=== PATIENT | female | born 1940 | race Caucasian/White ===

== ENCOUNTER 2019-02-21 06:40 | Day surgery (SDC) | payer MEDICARE, BC ==
[2019-02-21] MEDS ORDERED: fentaNYL 100 MCG/2 ML SDV IV ONE (06:41)
[2019-02-21] MEDS ORDERED: Midazolam 1 MG/ML 2 ML SDV IV ONE (06:41)
[2019-02-21] MEDS ORDERED: Sodium Chloride 0.9% 10 ML Syringe FLUSH PRN (06:45)
[2019-02-21] MEDS ORDERED: Lactated Ringers 1,000 ML IV SCH (06:45)
[2019-02-21 09:24] VITALS: BP 135/74; PULSE 93
--- NOTE | 2019-02-21 11:04 | OR ---
DATE OF OPERATION: 02/21/2019 SURGEON: Kayleen Paulino MD PREOPERATIVE DIAGNOSIS: Visually significant cataract, right eye. POSTOPERATIVE DIAGNOSIS: Visually significant cataract, right eye. PROCEDURES PERFORMED: Phacoemulsification with intraocular lens placement, right eye. ASSISTANTS: None. ANESTHESIA: Local with sedation. COMPLICATIONS: None. BLOOD LOSS: None. IMPLANTS: Kiko AU00T0, 21.5 Diopter lens implanted. CDE: 10.37. DESCRIPTION OF PROCEDURE: After risks and benefits were reviewed with the patient, consent was obtained in the preoperative area, and the operative eye was marked with a surgical pen. In the preoperative area, a pledget was used to dilate the pupil consisting of a mixture of phenylephrine 10%, cyclopentolate 2%, moxifloxacin 0.5%, and bupivacaine 0.75%. The patient was taken to the operating room, where a time-out was performed, and the patient was placed under monitored anesthesia care. Topical tetracaine was used for anesthesia. The operative eye was prepped and draped for ophthalmic surgery, and the microscope was brought into position and focussed. A paracentesis incision was made, followed by injection of preservative-free 1% lidocaine into the anterior chamber, followed by injection of Viscoat into the anterior chamber. A microkeratome blade was used to make a corneal limbal incision temporarily. A cystotome was used to make the beginning of the capsulorrhexis, which was carried around 360 degrees in a curvilinear fashion using Utrata forceps. A Weldon cannula with BSS was used to hydrodissect and hydrodelineate the nucleus. The nucleus was removed in a divide and conquer manner using phacoemulsification. Irrigation and aspiration were used to remove the remaining cortical material. Provisc was used to inflate the capsular bag, and a pre-loaded Kiko AU00T0, 21.5 diopter lens, serial number [id number] was injected into the capsular bag. A Sinskey hook was used to position and center the lens. Next, irrigation and aspiration was used to remove any remaining viscoelastic and cortical material from the anterior chamber. BSS on a cannula was used to inflate the anterior chamber and hydrate the wound. The wound was checked and found to be watertight. 1 mg of Moxifloxacin was injected into the anterior chamber. Drapes were removed and the eye was cleaned. A drop of brimonidine 0.15% and a drop of TobraDex was placed. The eye was shielded, and the patient was taken to the recovery room in stable condition. /[id number] AMITA/CORDELL CC: RANJIT HINDS PA-C MTDD
== END 2019-02-21 09:30 | disposition home or self-care (01) ==
LOC: FB.SDS 06:40
PROVIDERS: ATTEND Ophthalmology
DX: E11.36 Type 2 diabetes mellitus with diabetic cataract (principal); E11.3293 Type 2 diabetes mellitus with mild nonproliferative diabetic retinopathy without macular edema, bilateral; E11.22 Type 2 diabetes mellitus with diabetic chronic kidney disease; I12.9 Hypertensive chronic kidney disease with stage 1 through stage 4 chronic kidney disease, or unspecified chronic kidney disease; N18.3 Chronic kidney disease, stage 3 (moderate); M19.90 Unspecified osteoarthritis, unspecified site; M10.9 Gout, unspecified; E78.2 Mixed hyperlipidemia; Z79.899 Other long term (current) drug therapy; Z79.84 Long term (current) use of oral hypoglycemic drugs; Z79.82 Long term (current) use of aspirin; Z88.8 Allergy status to other drugs, medicaments and biological substances
CPT/HCPCS: 82962; J2250; J3010; J7120; V2632

== ENCOUNTER 2019-03-01 06:35 | Day surgery (SDC) | payer MEDICARE, BC ==
[2019-03-01] MEDS ORDERED: fentaNYL 100 MCG/2 ML SDV IV ONE (06:36)
[2019-03-01] MEDS ORDERED: Ondansetron 4 MG/2 ML SDV IVPUSH ONE (06:36)
[2019-03-01] MEDS ORDERED: Midazolam 1 MG/ML 2 ML SDV IV ONE (06:36)
[2019-03-01] MEDS ORDERED: Sodium Chloride 0.9% 10 ML Syringe FLUSH PRN (06:45)
[2019-03-01] MEDS: Lactated Ringers 1,000 ML IV SCH (07:40)
--- NOTE | 2019-03-01 11:18 | OR ---
DATE OF OPERATION: 03/01/2019 SURGEON: Kayleen Paulino MD PREOPERATIVE DIAGNOSIS: Visually significant cataract, left eye. POSTOPERATIVE DIAGNOSIS: Visually significant cataract, left eye. PROCEDURES PERFORMED: Phacoemulsification with intraocular lens placement, left eye. ASSISTANTS: None. ANESTHESIA: Local with sedation. COMPLICATIONS: None. BLOOD LOSS: None. IMPLANTS: Kiko AU00T0, 22.5 diopter lens implanted. CDE: 8.93. DESCRIPTION OF PROCEDURE: After risks and benefits were reviewed with the patient, consent was obtained in the preoperative area, and the operative eye was marked with a surgical pen. In the preoperative area, a pledget was used to dilate the pupil consisting of a mixture of phenylephrine 10%, cyclopentolate 2%, moxifloxacin 0.5%, and bupivacaine 0.75%. The patient was taken to the operating room, where a time-out was performed, and the patient was placed under monitored anesthesia care. Topical tetracaine was used for anesthesia. The operative eye was prepped and draped for ophthalmic surgery, and the microscope was brought into position and focussed. A paracentesis incision was made, followed by injection of preservative-free 1% lidocaine into the anterior chamber, followed by injection of Viscoat into the anterior chamber. A microkeratome blade was used to make a corneal limbal incision temporarily. A cystotome was used to make the beginning of the capsulorrhexis, which was carried around 360 degrees in a curvilinear fashion using Utrata forceps. A Weldon cannula with BSS was used to hydrodissect and hydrodelineate the nucleus. The nucleus was removed in a divide and conquer manner using phacoemulsification. Irrigation and aspiration were used to remove the remaining cortical material. Provisc was used to inflate the capsular bag, and a pre-loaded Kiko AU00T0, 22.5 diopter lens, serial number [id number] was injected into the capsular bag. A Sinskey hook was used to position and center the lens. Next, irrigation and aspiration was used to remove any remaining viscoelastic and cortical material from the anterior chamber. BSS on a cannula was used to inflate the anterior chamber and hydrate the wound. The wound was checked and found to be watertight. 1 mg of Moxifloxacin was injected into the anterior chamber. Drapes were removed and the eye was cleaned. A drop of brimonidine 0.15% and a drop of TobraDex was placed. The eye was shielded, and the patient was taken to the recovery room in stable condition. /[id number] AMITA/CORDELL CC: RANJIT HINDS PA-C MTDD
[2019-03-01 15:09] VITALS: BP 125/73; PULSE 88
== END 2019-03-01 09:05 | disposition home or self-care (01) ==
LOC: FB.SDS 06:35
PROVIDERS: ATTEND Ophthalmology
DX: E11.36 Type 2 diabetes mellitus with diabetic cataract (principal); H25.9 Unspecified age-related cataract; I12.9 Hypertensive chronic kidney disease with stage 1 through stage 4 chronic kidney disease, or unspecified chronic kidney disease; E11.22 Type 2 diabetes mellitus with diabetic chronic kidney disease; N18.3 Chronic kidney disease, stage 3 (moderate); M10.9 Gout, unspecified; E78.2 Mixed hyperlipidemia; E11.3293 Type 2 diabetes mellitus with mild nonproliferative diabetic retinopathy without macular edema, bilateral; Z79.84 Long term (current) use of oral hypoglycemic drugs; Z79.82 Long term (current) use of aspirin; Z88.8 Allergy status to other drugs, medicaments and biological substances
CPT/HCPCS: 66984; 82962; J2250; J2405; J3010; J7120; V2632

== ENCOUNTER 2023-11-16 17:19 | Emergency (ER) | payer MEDICARE, OTHER ==
[2023-11-16] MEDS ORDERED: Sodium Chloride 0.9% 10 ML Syringe FLUSH PRN (18:04)
[2023-11-16 18:15] LABS: HEMATOCRIT 41.4 % (34.2-48.2); MEAN CORPUSCULAR HEMOGLOBIN 32.4 pg (23.9-33.9); MEAN CORPUSCULAR HGB CONC 33.8 g/dL (31.9-34.8); MEAN CORPUSCULAR VOLUME 95.7 fL (76.7-100.5); PLATELET COUNT,PLT 114 x10(3)uL (151-488); RED BLOOD CELL COUNT 4.33 x10(6)uL (3.60-5.20); RED CELL DISTRIBUTION WIDTH 13.9 % (12.3-16.5); WHITE BLOOD CELL COUNT,WBC 9.5 x10-3/uL (3.0-10.3)
[2023-11-16 18:23] LABS: A/G RATIO 1.1; ALANINE AMINOTRANSFERASE,ALT 33 U/L (12-36); ALBUMIN 4.1 g/dL (3.2-4.6); ALKALINE PHOSPHATASE 94 IU/L (56-112); ASPARTATE AMNIOTRANSFERASE,AST 31 IU/L (5-25); BILIRUBIN TOTAL 0.9 mg/dL (0.1-1.3); BLOOD UREA NITROGEN,BUN 43 mg/dL (7-18); BUN/CREATININE RATIO 21.5 (9-20); CARBON DIOXIDE,CO2 20 mmol/L (21-32); CHLORIDE,CL 99 mmol/L (100-110); ESTIMATED GFR 24 mL/min (>60); GLUCOSE RANDOM 86 mg/dL (80-116); MAGNESIUM 1.6 mg/dL (1.8-2.5); POTASSIUM,K 4.4 mmol/L (3.5-5.3); PROTEIN TOTAL,TP 7.8 g/dL (6.0-8.0); SODIUM,NA 136 mmol/L (135-145)
[2023-11-16 18:25] LABS: TROPONIN I 16.2 pg/mL (4.0-60.3)
[2023-11-16 18:50] LABS: C-REACTIVE PROTEIN < 0.50 mg/dL (<0.50)
[2023-11-16 19:16] LABS: BILIRUBIN,URINE NEGATIVE (NEGATIVE); GLUCOSE,URINE NORMAL (NORMAL); KETONES,URINE NEGATIVE (NEGATIVE); LEUKOCYTE ESTERASE,URINE SMALL (NEGATIVE); NITRITE,URINE NEGATIVE (NEGATIVE); OCCULT BLOOD,URINE NEGATIVE (NEGATIVE); PROTEIN,URINE NEGATIVE (NEGATIVE); UROBILINOGEN,URINE NORMAL (NEGATIVE)
[2023-11-16 19:19] LABS: APPEARANCE,URINE CLEAR (CLEAR); COLOR,URINE YELLOW (YELLOW); RBC,URINE 0-5 (0-5); WBC,URINE 0-5 (0-5)
[2023-11-16 19:20] LABS: BACTERIA,URINE RARE (NS); SQUAMOUS EPITHELIAL CELLS,UR OCCASIONAL (NS,R,O)
[2023-11-16 19:40] LABS: EOSINOPHILS PERCENT MAN 1 % (0-5); LYMPHOCYTES PERCENT MAN 12 % (13-37); MONOCYTES PERCENT MAN 2 % (4-12); SEG NEUTROPHILS PERCENT MAN 85 % (46-82)
[2023-11-16] MEDS: Sodium Chloride 0.9% 1,000 ML IV SCH (19:42)
[2023-11-16 21:51] VITALS: BP 128/79; PULSE 101
== END 2023-11-16 22:58 | disposition home or self-care (01) ==
LOC: FB.ED 17:19
DX: R53.1 Weakness (principal); R79.89 Other specified abnormal findings of blood chemistry; E86.0 Dehydration; I10 Essential (primary) hypertension; E78.00 Pure hypercholesterolemia, unspecified; E11.9 Type 2 diabetes mellitus without complications; Z88.8 Allergy status to other drugs, medicaments and biological substances; Z79.82 Long term (current) use of aspirin; Z79.899 Other long term (current) drug therapy; Z90.49 Acquired absence of other specified parts of digestive tract; W01.0XXA Fall on same level from slipping, tripping and stumbling without subsequent striking against object, initial encounter
CPT/HCPCS: 36415; 70450; 71045; 80053; 81001; 83735; 84484; 85025; 86140; 93005; 93010; 96360; 99284; 99285-25; J7030; U0002

== ENCOUNTER 2025-03-08 12:10 | Emergency (ER) | payer MEDICARE, OTHER ==
[2025-03-08] MEDS ORDERED: Sodium Chloride 0.9% 10 ML Syringe FLUSH PRN (12:19)
[2025-03-08] MEDS: 50% Dextrose in Water 50 ML Syringe IVPUSH ONE (12:28)
[2025-03-08 12:45] LABS: BASOPHILS ABSOLUTE AUTO 0.0 x10-3/uL (0.0-0.1); BASOPHILS PERCENT AUTO 0.3 % (0.2-1.5); EOSINOPHILS ABSOLUTE AUTO 0.0 x10-3/uL (0.0-0.8); EOSINOPHILS PERCENT AUTO 0.4 % (0.6-8.1); LYMPHOCYTES ABSOLUTE AUTO 0.5 x10-3/uL (1.0-4.4); LYMPHOCYTES PERCENT AUTO 8.8 % (18.4-52.1); MEAN PLATELET VOLUME 8.5 fL (7.1-12.4); MONOCYTES ABSOLUTE AUTO 0.2 x10-3/uL (0.3-1.0); MONOCYTES PERCENT AUTO 2.7 % (4.4-15.7); NEUTROPHILS ABSOLUTE AUTO 4.9 x10-3/uL (1.5-6.3); NEUTROPHILS PERCENT AUTO 87.8 % (30.8-76.2); PLATELET COUNT,PLT 64 x10(3)uL (151-488); RED BLOOD CELL COUNT 4.04 x10(6)uL (3.60-5.20); RED CELL DISTRIBUTION WIDTH 14.7 % (12.3-16.5); WHITE BLOOD CELL COUNT,WBC 5.6 x10-3/uL (3.0-10.3)
[2025-03-08 12:50] LABS: BLOOD UREA NITROGEN,BUN 28 mg/dL (7-18); CARBON DIOXIDE,CO2 22 mmol/L (21-32); CHLORIDE,CL 106 mmol/L (100-110); CREATININE 1.4 mg/dL (0.55-1.02); ESTIMATED GFR 37 mL/min (>60); GLUCOSE RANDOM 71 mg/dL (80-116); POTASSIUM,K 4.2 mmol/L (3.5-5.3); SODIUM,NA 141 mmol/L (135-145)
[2025-03-08 12:56] LABS: A/G RATIO 1.1; ALANINE AMINOTRANSFERASE,ALT 22 U/L (12-36); ASPARTATE AMNIOTRANSFERASE,AST 28 IU/L (5-25); BILIRUBIN TOTAL 1.3 mg/dL (0.1-1.3); PROTEIN TOTAL,TP 7.5 g/dL (6.0-8.0)
[2025-03-08 13:02] LABS: INR 1.13 (1.00-1.24)
[2025-03-08 13:07] LABS: PTT,PARTIAL THROMBOPLSTIN TIME 25.7 SECONDS (24.4-33.2)
[2025-03-08 13:41] LABS: GLUCOSE,URINE 50 mg/dL (NORMAL); OCCULT BLOOD,URINE NEGATIVE (NEGATIVE)
[2025-03-08 13:42] LABS: APPEARANCE,URINE SLIGHTLY CLOUDY (CLEAR)
[2025-03-08 13:48] LABS: SQUAMOUS EPITHELIAL CELLS,UR FEW (NS,R,O)
[2025-03-08 16:10] VITALS: BP 146/80; PULSE 115
== END 2025-03-08 15:40 | disposition home or self-care (01) ==
LOC: FB.ED 12:10
DX: E86.0 Dehydration (principal); N39.0 Urinary tract infection, site not specified; E83.51 Hypocalcemia; E78.00 Pure hypercholesterolemia, unspecified; I10 Essential (primary) hypertension; E11.9 Type 2 diabetes mellitus without complications; Z88.8 Allergy status to other drugs, medicaments and biological substances; Z79.84 Long term (current) use of oral hypoglycemic drugs; Z79.899 Other long term (current) drug therapy
CPT/HCPCS: 36415; 70450; 70450-26; 71045; 71045-26; 80053; 81001; 82947; 84484; 85025; 85610; 85730; 87086; 93005; 96361; 96374; 96375; 99285-25; J0696; J7030

== ENCOUNTER 2025-04-09 10:50 | Emergency (ER) | payer MEDICARE, OTHER ==
[2025-04-09 11:44] LABS: MEAN PLATELET VOLUME 9.4 fL (7.1-12.4); PLATELET COUNT,PLT 81 x10(3)uL (151-488); RED BLOOD CELL COUNT 3.66 x10(6)uL (3.60-5.20); RED CELL DISTRIBUTION WIDTH 15.1 % (12.3-16.5); WHITE BLOOD CELL COUNT,WBC 7.6 x10-3/uL (3.0-10.3)
[2025-04-09 11:49] LABS: INR 1.11 (1.00-1.24)
[2025-04-09 11:52] LABS: A/G RATIO 1.2; ALANINE AMINOTRANSFERASE,ALT 29 U/L (12-36); ASPARTATE AMNIOTRANSFERASE,AST 41 IU/L (5-25); BILIRUBIN TOTAL 1.7 mg/dL (0.1-1.3); BLOOD UREA NITROGEN,BUN 45 mg/dL (7-18); CARBON DIOXIDE,CO2 22 mmol/L (21-32); CHLORIDE,CL 107 mmol/L (100-110); CREATININE 1.9 mg/dL (0.55-1.02); EST CRCL DRUG DOSING (CG) 17.91 mL/min; ESTIMATED GFR 26 mL/min (>60); GLUCOSE RANDOM 188 mg/dL (80-116); POTASSIUM,K 4.5 mmol/L (3.5-5.3); PROTEIN TOTAL,TP 7.4 g/dL (6.0-8.0); SODIUM,NA 142 mmol/L (135-145)
[2025-04-09 12:01] LABS: LYMPHOCYTES PERCENT MAN 9 % (13-37); MONOCYTES PERCENT MAN 4 % (4-12); SEG NEUTROPHILS PERCENT MAN 87 % (46-82)
[2025-04-09 13:05] LABS: GLUCOSE,URINE NORMAL (NORMAL); OCCULT BLOOD,URINE NEGATIVE (NEGATIVE)
[2025-04-09 13:08] LABS: APPEARANCE,URINE SLIGHTLY CLOUDY (CLEAR)
[2025-04-09 15:29] VITALS: BP 130/65; PULSE 90
== END 2025-04-09 15:10 | disposition home or self-care (01) ==
LOC: FB.ED 10:50
DX: E86.0 Dehydration (principal); I10 Essential (primary) hypertension; E78.00 Pure hypercholesterolemia, unspecified; E11.9 Type 2 diabetes mellitus without complications; Z88.8 Allergy status to other drugs, medicaments and biological substances; Z79.899 Other long term (current) drug therapy; Z79.84 Long term (current) use of oral hypoglycemic drugs
CPT/HCPCS: 36415; 73600; 74177; 80053; 81003; 83690; 84484; 85025; 85610; 93005; 96360; 96361; 99285; J7030